=== PATIENT | female | born 1985 | race Caucasian/White ===

== ENCOUNTER 2020-10-11 11:22 | Emergency (ER) | payer BC, OTHER ==
[2020-10-11 15:00] LABS: HEMOGLOBIN 13.6 gm/dl (12.3-15.3); RED BLOOD COUNT 4.84 M/UL (4.00-5.10); WHITE BLOOD COUNT 10.9 K/UL (4.5-11.0)
[2020-10-11 15:25] LABS: BUN/CREATININE RATIO 18 (0-10)
== END 2020-10-11 16:51 | disposition home or self-care (01) ==
LOC: ER1 11:22
PROVIDERS: Emergency Medicine
DX: R55 Syncope and collapse (principal); R53.1 Weakness; Z86.16 Personal history of COVID-19; Z88.0 Allergy status to penicillin; Z88.1 Allergy status to other antibiotic agents; Z88.2 Allergy status to sulfonamides
CPT/HCPCS: 70450; 71045; 80053; 81001; 82550; 82553; 83874; 84484; 84703; 85025; 85379; 93005; 99285

== ENCOUNTER → 2020-10-12 | Outpatient (CLI) | payer BC, OTHER | LOC: RT 10:38 | DX: R00.2 Palpitations (principal) | CPT/HCPCS: 93270 ==